=== PATIENT | female | born 1945 | race Caucasian/White ===

== ENCOUNTER 2016-05-26 15:36 | Emergency (ER) | payer OTHER ==
[~2016-05-26] VITALS: Ht 160 cm; Wt 60.7 kg
[2016-05-26 16:00] VITALS: BP 137/91; PULSE 90; RESP 16; TEMP 99.4; O2SAT 98
[2016-05-26] MEDS ORDERED: LISI2.5T3 PO (16:20)
[2016-05-26] MEDS ORDERED: ATOR10TA15 PO (16:20)
[2016-05-26] MEDS ORDERED: METF500T PO (16:20)
--- NOTE | 2016-05-26 17:05 | PD ---
HPI Chief Complaint: Cold / Flu Symptoms Time Seen by Provider: 17:04 Travel History International Travel<30 days: No Contact w/Intl Traveler<30days: No Traveled to known affect area: No History of Present Illness HPI 70-year-old female with a history of hypertension, hyperlipidemia and diabetes presents to the emergency department for evaluation of cough and asthma attack. The patient states that for the past week she has had mild nasal congestion which has been improving. States that last night her granddaughter's cat came around her and this caused her to begin coughing and having an asthma attack. States she has been out of her albuterol inhaler for several years because she has not needed it. States she was able to get her shortness of breath to improve but she has continued to have cough this morning. She denies any fever , chills, nausea, vomiting, chest pain, lightheadedness, dizziness, productive cough. No other complaints. PFSH Past Medical History Cardiovascular Problems: Yes (HTN) High Cholesterol: Yes Diabetes: Yes (TYPE 2) Patient Takes Glucophage: Yes Diminished Hearing: No Hypertension: Yes Respiratory: Yes (ASTHMA) Tetanus Vaccination: Unknown ?: Not Social History Alcohol Use: Yes (DAILY) Tobacco Use: No Substance Use: No Allergies-Medications (Allergen,Severity, Reaction): Uncoded Allergies: CATS (Allergy, Severe, CAN'T BREATH, 05/26/16) Reported Meds & Prescriptions Reported Meds & Active Scripts Active Prednisone 20 Mg Tab 20 Mg PO BID 5 Days Ventolin Hfa 18 GM Inh (Albuterol Sulfate) 90 Mcg/Act Aer 2 Puff INH Q4-6H PRN Reported Atorvastatin (Atorvastatin Calcium) 10 Mg Tab Unknown Dose PO HS Lisinopril 2.5 Mg Tab Unknown Dose PO DAILY Metformin (Metformin HCl) 500 Mg Tab Unknown Dose PO BIDPC With meals Review of Systems Except as stated in HPI: all other systems reviewed are Neg Physical Exam Narrative GENERAL: Well-nourished and well-developed pleasant patient in no acute distress who is nontoxic appearing. SKIN: Warm and dry. HEAD: Normocephalic and atraumatic. EYES: No injection, drainage, or hyphema noted. PERRLA. EOMI. ENT: No nasal drainage noted. Oropharynx is clear and the TMs are normal with good landmarks. NECK: Supple and the trachea is midline. CARDIOVASCULAR: Regular rate and rhythm. RESPIRATORY: Bilateral wheezing throughout. No accessory muscle use, rhonchi, or crackles. Speaking in full sentences without difficulty. GASTROINTESTINAL: Abdomen is soft, non-tender, and nondistended. MUSCULOSKELETAL: No obvious deformities, swelling, cyanosis, or ecchymosis is present throughout the upper and lower extremities. Patient has full range of motion without any signs of neurovascular compromise. NEUROLOGICAL: Awake, alert, and oriented. Normal speech and gait. Cranial nerves are grossly intact. Data Data Last Documented VS Vital Signs Date Time Temp Pulse Resp B/P Pulse Ox O2 Delivery O2 Flow Rate FiO2 05/26/16 16:00 99.4 90 16 137/91 98 Orders Albuterol Neb (Albuterol Neb) (05/26/16 17:15) MDM Medical Decision Making Medical Screen Exam Complete: Yes Emergency Medical Condition: Yes Differential Diagnosis Asthma exacerbation versus viral illness versus URI versus bronchitis Narrative Course 70-year-old female presents to the emergency department for evaluation of cough and asthma exacerbation. Patient is afebrile, vital signs are stable. She states she has a history of asthma but has not had an exacerbation several years and ran out of her inhalers. She has wheezing on exam but is in no acute distress. Patient is given a nebulizer treatment here in the ED with complete resolution of wheezing. Patient will be discharged with a short course of steroids and an albuterol inhaler. Discussed supportive care and when to return to the emergency department. Advise follow-up with her PCP. Patient verbalizes understanding and agreement with treatment plan. Diagnosis Primary Impression: Asthma exacerbation Referrals: Primary Care Physician Patient Instructions: General Instructions Additional Instructions: Use inhaler as prescribed. Take medication as prescribed with food and a full glass of water. Follow-up with your Primary Care Physician. Return to the ED for any acute worsening of symptoms. Med/Other Pt SpecificInfo: Prescription(s) given Scripts Prednisone 20 Mg Tab20 Mg PO BID 5 Days Ref 0 Prov:Leana Lynne MD 05/26/16 Albuterol 18 GM Inh (Ventolin Hfa 18 GM Inh)90 Mcg/Act Aer2 Puff INH Q4-6H PRN ( SHORTNESS OF BREATH) #1 INHALER Ref 0 Prov:Leana Lynne MD 05/26/16 Disposition: 01 DISCHARGE HOME Condition: Stable Maria Isabel Hickey May 26, 2016 17:05
[2016-05-26] MEDS ORDERED: RESP: ALBUTEROL 2.5 MG/3 ML NEB (SCH) INH ONE (17:15)
[2016-05-26] MEDS ORDERED: VENTAER INH (17:18)
[2016-05-26] MEDS ORDERED: PRED20 PO (17:18)
== END 2016-05-26 17:25 | disposition home or self-care (01) ==
LOC: PHEFT 15:36
DX: J45.901 Unspecified asthma with (acute) exacerbation (principal); I10 Essential (primary) hypertension; E11.9 Type 2 diabetes mellitus without complications; E78.00 Pure hypercholesterolemia, unspecified; Z79.84 Long term (current) use of oral hypoglycemic drugs
CPT/HCPCS: 94664; 99284; J7613